=== PATIENT | male | born 1975 | race Caucasian/White ===

== ENCOUNTER 2021-12-17 20:24 | Emergency (ER) | payer MEDICAID ==
[~2021-12-17] VITALS: Ht 180.3 cm; Wt 99.8 kg
[2021-12-17 21:17] VITALS: BP_SYST 159
--- NOTE | 2021-12-17 21:25 | NUR ---
PT TO LOBBY AWAITING PROVIDER EXAMINATION.
--- NOTE | 2021-12-17 23:00 | NUR ---
PT TO H1 AT THIS TIME. PT AMBULATES WITH STEADY GAIT.
[2021-12-18 00:38] LABS: HEMOGLOBIN 13.9 g/dL (14.0-18.0); RED CELL DISTRIBUTION WIDTH 13.6 % (9.0-15.0); WHITE BLOOD COUNT (AUTO) 8.1 K/uL (4.8-10.8)
[2021-12-18 00:42] LABS: BASOPHILS % (AUTO) 0.5 % (0.0-2.0); EOSINOPHILS # (AUTO) 0.1 K/uL (0.0-0.4); EOSINOPHILS % (AUTO) 1.7 % (0.0-4.0); HEMATOCRIT 40.2 % (36-54); LYMPHOCYTES # (AUTO) 1.6 K/uL (1.0-5.5); LYMPHOCYTES % (AUTO) 20.4 % (20.5-51.5); MEAN CORPUSCULAR HEMOGLOBIN 30 pg (27-31); MEAN CORPUSCULAR HGB CONC 35 % (32-36); MEAN CORPUSCULAR VOLUME 88 fL (79.0-98.0); MONOCYTES # (AUTO) 0.6 K/uL (0.0-1.0); NEUTROPHILS # (AUTO) 5.6 K/uL (1.8-7.7); NEUTROPHILS % (AUTO) 69.4 % (40.0-70.0); PLATELET COUNT (AUTO) 226 K/uL (130-430); RED BLOOD CELL COUNT(AUTO) 4.58 MIL/uL (4.2-6.2)
[2021-12-18 00:46] LABS: CALCIUM 7.9 mg/dL (8.4-11.0); CREATININE 1.28 mg/dL (0.55-1.30); POTASSIUM 3.8 mmol/L (3.5-5.1)
[2021-12-18 00:52] LABS: ALBUMIN 3.7 g/dL (3.4-4.8); TOTAL BILIRUBIN 0.4 mg/dL (0.0-1.0)
[2021-12-18] MEDS ORDERED: PRED20TA PO ×3 (05:11→05:14)
[2021-12-18] MEDS ORDERED: predniSONE 20 MG TABLET PO ONE (05:15)
[2021-12-18 05:56] VITALS: BP_SYST 113
--- NOTE | 2021-12-18 05:57 | NUR ---
DC INSTRUCTIONS GIVEN TO PT WITH FULL RETURNED VERBAL UNDERSTANDING. VSS. PT DENIES ANY PAIN. ESCRIPT SENT TO PHARMACY OF PT CHOICE. PT AMBULATES TO EXIT WITH STEADY GAIT.
== END 2021-12-18 05:57 | disposition home or self-care (01) ==
LOC: SED 20:24
DX: M79.662 Pain in left lower leg (principal); R20.2 Paresthesia of skin; M79.652 Pain in left thigh
CPT/HCPCS: 36415; 72100-TC; 72131; 76376; 80053; 85025; 93005; 93971; 99285